=== PATIENT | female | born 1925 | race Caucasian/White ===

== ENCOUNTER → 2016-03-21 | Outpatient (CLI) | payer MEDICARE, OTHER ==
--- NOTE | 2016-03-21 10:50 | REP ---
PA and lateral chest: Comparisons are 09/14/2015 and 10/01/2012. The lung hernández are clear. The cardiac size is normal The jaymie, mediastinum, and bony thorax are unremarkable. Impression: Negative PA and lateral chest. There is no interval change. There are surgical clips. The abdominal right upper quadrant, unchanged. Signed by Javi Ng MD 03/21/2016 10:42 A
== END ==
LOC: M CLY 07:57
PROVIDERS: ATTEND Family Medicine
DX: J45.909 Unspecified asthma, uncomplicated (principal)

== ENCOUNTER → 2016-11-18 | Outpatient (CLI) | payer MEDICARE, OTHER ==
--- NOTE | 2016-11-18 12:02 | REP ---
Right ankle four views: There is a fracture at the tip of the fibula with adjacent soft tissue edema. The mortise is symmetric. Mineralization is normal. There are no foreign bodies.
--- NOTE | 2016-11-18 12:05 | REP ---
Right foot four views: There is a fracture of the distal phalanges of the third digit. 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 No foreign body.
== END ==
LOC: M CLY 10:29
PROVIDERS: ATTEND Family Medicine
DX: S91.311A Laceration without foreign body, right foot, initial encounter (principal); M19.071 Primary osteoarthritis, right ankle and foot; R60.0 Localized edema; S82.831A Other fracture of upper and lower end of right fibula, initial encounter for closed fracture; W28.XXXA Contact with powered lawn mower, initial encounter; Y92.9 Unspecified place or not applicable; Y93.9 Activity, unspecified
CPT/HCPCS: 73610; 73630; G0463

== ENCOUNTER → 2016-12-26 | Outpatient (CLI) | payer MEDICARE, OTHER ==
--- NOTE | 2016-12-26 16:28 | REP ---
RIGHT ANKLE, FOUR VIEWS: HISTORY: Fracture. COMPARISON: 11/18/2016 There is a nondisplaced fracture of the distal fibula, unchanged compared to the previous study. There is no dislocation. The joint space is normal in appearance. Soft tissue swelling is present. IMPRESSION: Nondisplaced fracture of the distal fibula unchanged compared to the previous study.
== END ==
LOC: M CLY 12:26
PROVIDERS: ATTEND Family Medicine
DX: S82.64XD Nondisplaced fracture of lateral malleolus of right fibula, subsequent encounter for closed fracture with routine healing (principal); X58.XXXA Exposure to other specified factors, initial encounter; Y92.89 Other specified places as the place of occurrence of the external cause; Y93.89 Activity, other specified; Y99.8 Other external cause status
CPT/HCPCS: 73610; G0463